=== PATIENT | female | born 1970 | race Caucasian/White ===

== ENCOUNTER 2023-04-30 15:58 | Emergency (ER) | payer OTHER ==
[~2023-04-30] VITALS: Ht 162.6 cm; Wt 70.0 kg
[2023-04-30] MEDS ORDERED: ONDANSETRON HCL 4MG/2ML INJ IV STA (17:38)
[2023-04-30] MEDS ORDERED: ACETAMINOPHEN 325MG TABLET PO STA (17:38)
[2023-04-30] MEDS ORDERED: SODIUM CHLORIDE 0.9% 1,000 ML IV ONE (17:45)
[2023-04-30 18:08] LABS: BASOPHILS % 0.4 % (0.0-2.0); EOSINOPHILS % 0.2 % (0.0-5.0); HEMATOCRIT. 39.8 % (36.0-48.0); HEMOGLOBIN. 13.3 g/dL (12.0-16.0); LYMPHOCYTES % 8.6 % (20.0-50.0); MEAN CORPUSCULAR HEMOGLOBIN 28.9 pg (28.0-32.0); MEAN CORPUSCULAR VOLUME 86.2 fL (81.0-99.0); MEAN PLATELET VOLUME 9.1 fl (7.4-10.4); MONOCYTES % 10.2 % (2.0-8.0); NEUTROPHILS % 80.6 % (40.0-76.0); PLATELET 220 x1000/uL (130-400); RED BLOOD CELL COUNT 4.62 mill/uL (4.2-5.4); RED CELL DISTRIBUTION WIDTH 14.9 % (11.6-14.6)
[2023-04-30 20:10] LABS: CHLORIDE 99 mEq/L (98-107)
[2023-04-30] MEDS ORDERED: IOHEXOL-300 100 ML BOTTLE ONE (22:49)
[2023-04-30] MEDS ORDERED: CEFTRIAXONE 2 G in DEXTROSE 5% WATER 50 ML IV NR (23:15)
[2023-04-30] MEDS ORDERED: CEPH500C2 MT (23:35)
[2023-04-30] MEDS ORDERED: CIPR500T5 MT (23:35)
[2023-05-01 00:02] VITALS: BP 138/72
== END 2023-05-01 00:04 | disposition home or self-care (01) ==
LOC: ER 15:58
DX: N12 Tubulo-interstitial nephritis, not specified as acute or chronic (principal); R73.9 Hyperglycemia, unspecified; I10 Essential (primary) hypertension; Z20.822 Contact with and (suspected) exposure to COVID-19
CPT/HCPCS: 36415; 71045; 74177; 80053; 84145; 85025; 87426; 96361; 96374; 99285; C9803; J2405; J7030; Q9967; Z7610; J0696; J7060